=== PATIENT | female | born 1990 | race Two or more races ===

== ENCOUNTER 2021-09-20 19:30 | Observation (INO) | payer MEDICAID, OTHER ==
[2021-09-20] MEDS ORDERED: PREN-96 PO (19:54)
== END 2021-09-20 21:10 | disposition home or self-care (01) ==
LOC: LDRP 19:30
PROVIDERS: ADMIT Obstetrics & Gynecology; ATTEND Obstetrics & Gynecology
DX: O26.852 Spotting complicating pregnancy, second trimester (principal); Z3A.27 27 weeks gestation of pregnancy
CPT/HCPCS: 59025; 76815; 81002; G0378; G0379

== ENCOUNTER → 2021-11-12 | Outpatient (CLI) | payer MEDICAID ==
[~2021-11-12] MED LIST: PREN-96 PO
[2021-11-12 10:34] LABS: Basophils # (auto) 0.1 10 ^3/uL (0-0.2); Basophils % (auto) 0.7 % (0.0-2.0); Eosinophils # (auto) 0 10 ^3/uL (0-0.8); Eosinophils % (auto) 0.4 % (0.0-7.0); Hematocrit 41.4 % (36.0-46.0); Hemoglobin 14.1 g/dL (12.2-16.2); Lymphocytes # (auto) 2.1 10 ^3/uL (0.4-5.4); Mean Corpuscular Hemoglobin 31.5 pg (28.0-32.0); Mean Corpuscular Volume 92.7 fL (80.0-100.0); Monocytes # (auto) 0.5 10 ^3/uL (0-1.3); Monocytes % (auto) 5.4 % (0.0-12.0); Neutrophils # (auto) 6.1 10 ^3/uL (1.6-8.6); Neutrophils % (auto) 69.5 % (37.0-80.0); Red Blood Cells 4.47 10^6/uL (4.0-5.20); Red Cell Distribution Width 16.9 % (11.8-14.3); White Blood Cell 8.7 10^3/uL (4.4-10.8)
[2021-11-13 06:06] LABS: RPR Non Reactive (Non Reactive)
== END | disposition home or self-care (01) ==
LOC: LAB 10:12
PROVIDERS: ATTEND Obstetrics & Gynecology
DX: Z34.00 Encounter for supervision of normal first pregnancy, unspecified trimester (principal)
CPT/HCPCS: 36415; 84112; 85025; 86592

== ENCOUNTER 2021-12-07 09:53 | Observation (INO) | payer MEDICAID | END 2021-12-07 12:45 | disposition home or self-care (01) | LOC: LDRP 09:53 | PROVIDERS: ADMIT Obstetrics & Gynecology; ATTEND Obstetrics & Gynecology | DX: O32.1XX0 Maternal care for breech presentation, not applicable or unspecified (principal); Z20.822 Contact with and (suspected) exposure to COVID-19; Z3A.38 38 weeks gestation of pregnancy | CPT/HCPCS: 59025; 76818; 81002; G0378; G0379; U0003 ==

== ENCOUNTER 2021-12-09 04:10 | Inpatient (IN) | payer MEDICAID ==
[2021-12-09] VITALS (16 sets, daily range): BP systolic 97–114; BP diastolic 51–72
[~2021-12-09] VITALS: Ht 172.7 cm; Wt 71.7 kg
[2021-12-09] MEDS ORDERED: LACTATED RINGER'S 1,000 ML IV ONE (06:30)
[2021-12-09 07:15] LABS: Basophils # (auto) 0 10 ^3/uL (0-0.2); Basophils % (auto) 0.2 % (0.0-2.0); Eosinophils # (auto) 0.1 10 ^3/uL (0-0.8); Eosinophils % (auto) 0.7 % (0.0-7.0); Hematocrit 41.9 % (36.0-46.0); Hemoglobin 14.1 g/dL (12.2-16.2); Lymphocytes # (auto) 2.7 10 ^3/uL (0.4-5.4); Lymphocytes % (auto) 24.6 % (10.0-50.0); Mean Corpuscular Hemoglobin 32.3 pg (28.0-32.0); Mean Corpuscular Hgb Conc. 33.5 g/dL (32.0-36.0); Mean Corpuscular Volume 96.2 fL (80.0-100.0); Monocytes # (auto) 0.8 10 ^3/uL (0-1.3); Monocytes % (auto) 6.9 % (0.0-12.0); Neutrophils # (auto) 7.4 10 ^3/uL (1.6-8.6); Neutrophils % (auto) 67.6 % (37.0-80.0); Nucleated Red Blood Cells % 0.1 %; Red Blood Cells 4.36 10^6/uL (4.0-5.20); Red Cell Distribution Width 15.1 % (11.8-14.3); White Blood Cell 10.9 10^3/uL (4.4-10.8)
[2021-12-09] MEDS ORDERED: ceFAZolin 2 GM in D5W 5% 100 ML IV ONE (07:30)
[2021-12-09 07:32] LABS: Albumin 2.7 g/dL (3.4-5.0); Calcium 8.9 mg/dL (8.5-10.1); Potassium 3.8 mmol/L (3.5-5.1)
[2021-12-09 07:35] LABS: Bilirubin, Total 0.2 mg/dL (0.2-1.0)
[2021-12-09] MEDS: LACTATED RINGER'S 1,000 ML IV SCH ×2 (07:35→17:42)
[2021-12-09] MEDS ORDERED: TETRACAINE 1% INJ 2 ML VIAL IJ ONE ×2 (07:38→07:46)
[2021-12-09] MEDS ORDERED: SUCCINYLCHOLINE CHLORIDE 20 MG/ML 10ML VIAL IV ONE (07:41)
[2021-12-09] MEDS ORDERED: MORPHINE SULF PF 2 MG/2 ML SYRG ONE (07:49)
[2021-12-09] MEDS ORDERED: ceFAZolin 1GM/50ML 100 ML IV ONE (08:12)
[2021-12-09 08:47] LABS: INR 0.92 (0.9-1.15); Partial Thromboplastin Time 23.7 sec (23.6-33.0)
[2021-12-09] MEDS ORDERED: SODIUM CITR/CITRIC ACID ORAL SOLN 30 ML PO SCH (09:00)
[2021-12-09] MEDS ORDERED: ONDANSETRON HCL 4 MG/2 ML VIAL ONE (09:07)
[2021-12-09] MEDS ORDERED: oxyTOCIN 10 UNIT/ML 10ML VIAL ONE (09:45)
[2021-12-09] MEDS ORDERED: KETOROLAC TROMETH 30 MG/ML 1ML VIAL IV PRN (10:00)
[2021-12-09] MEDS ORDERED: NALOXONE HCL 0.4 MG/ML VIAL IV PRN (10:00)
[2021-12-09] MEDS ORDERED: DexAMETHasone SOD PHOS 10MG/1ML VIAL INJ IV PRN (10:00)
[2021-12-09] MEDS ORDERED: NALBUPHINE HCL 10 MG/1ml INJECTION SUBCUT ONE (10:00)
[2021-12-09] MEDS ORDERED: diphenhdrAMINE HCL 50 MG/1 ML VL IV PRN (10:00)
[2021-12-09] MEDS ORDERED: ONDANSETRON HCL 4 MG/2 ML VIAL IV PRN (10:00)
[2021-12-09] MEDS ORDERED: HYDROmorphone HCL 2 MG/ML VL IV PRN (10:00)
[2021-12-09] MEDS ORDERED: GUM (CHEWING) 1 GUM CHEW CHEW ONE (10:30)
[2021-12-09] MEDS ORDERED: SIMETHICONE 80 MG CHEWABLE TABLET PO PRN (10:30)
[2021-12-09] MEDS ORDERED: ePHEDrine SULFATE 50 MG/ML AMP IV PRN (10:30)
[2021-12-09 10:58] LABS: Urine Bacteria NONE SEEN /hpf (None Seen); Urine Blood 1+ /uL (Negative); Urine Mucus FEW (None Seen); Urine Specific Gravity 1.031 (1.001-1.035); Urine WBC 5 /hpf (0 - 5)
[2021-12-09 11:05] LABS: Alcohol, Urine < 3.0 mg/dL (0-10); Amphetamine Screen, Urine NEGATIVE (NEGATIVE); Barbiturate Scree,Urine NEGATIVE (NEGATIVE); Benzodiazephine Screen, Urine NEGATIVE (NEGATIVE); Cannabinoid Screen, Urine NEGATIVE (NEGATIVE); Cocaine Screen, Urine NEGATIVE (NEGATIVE); Opiate Scree,Urine NEGATIVE (NEGATIVE); Phencyclidine Screen, Urine NEGATIVE (NEGATIVE)
[2021-12-09] MEDS: DOCUSATE SOD 100 MG CAP PO SCH (21:36)
[2021-12-10 03:00] VITALS: BP 94/53
[2021-12-10 06:06] LABS: RPR Non Reactive (Non Reactive)
[2021-12-10 07:15] VITALS: BP 105/62
[2021-12-10 07:31] LABS: Basophils # (auto) 0 10 ^3/uL (0-0.2); Basophils % (auto) 0.2 % (0.0-2.0); Eosinophils # (auto) 0 10 ^3/uL (0-0.8); Eosinophils % (auto) 0.3 % (0.0-7.0); Hematocrit 36.1 % (36.0-46.0); Hemoglobin 12.4 g/dL (12.2-16.2); Lymphocytes # (auto) 1.2 10 ^3/uL (0.4-5.4); Lymphocytes % (auto) 11.8 % (10.0-50.0); Mean Corpuscular Hemoglobin 33.1 pg (28.0-32.0); Mean Corpuscular Hgb Conc. 34.3 g/dL (32.0-36.0); Mean Corpuscular Volume 96.3 fL (80.0-100.0); Monocytes # (auto) 0.5 10 ^3/uL (0-1.3); Neutrophils # (auto) 8.7 10 ^3/uL (1.6-8.6); Neutrophils % (auto) 82.7 % (37.0-80.0); Nucleated Red Blood Cells % 0.1 %; Red Blood Cells 3.75 10^6/uL (4.0-5.20); Red Cell Distribution Width 15.1 % (11.8-14.3); White Blood Cell 10.5 10^3/uL (4.4-10.8)
[2021-12-10] MEDS ORDERED: HYDROcodone-ACET 5/325MG TAB PO PRN (10:45)
[2021-12-10 11:30] VITALS: BP 109/70
[2021-12-10 15:22] VITALS: BP 115/62
[2021-12-10] MEDS: HYDROcodone-ACET 5/325MG TAB PO PRN (15:32)
[2021-12-10 19:30] VITALS: BP 123/64
[2021-12-10] MEDS: DOCUSATE SOD 100 MG CAP PO SCH (22:09)
[2021-12-10 23:00] VITALS: BP 115/71
[2021-12-11 03:00] VITALS: BP 102/63
[2021-12-11] MEDS ORDERED: BISACODYL 10 MG RECT SUPP PR ONE (03:00)
[2021-12-11 07:30] VITALS: BP 104/67
[2021-12-11 11:30] VITALS: BP 131/71
[2021-12-11 15:00] VITALS: BP 106/66
[2021-12-11 19:00] VITALS: BP 118/79
[2021-12-11] MEDS: DOCUSATE SOD 100 MG CAP PO SCH ×2 (21:33→22:00)
[2021-12-11] MEDS: HYDROcodone-ACET 5/325MG TAB PO PRN (21:33)
[2021-12-11 23:00] VITALS: BP 110/73
[2021-12-12 03:00] VITALS: BP 105/70
[2021-12-12 06:45] VITALS: BP 123/77
[2021-12-12 10:35] VITALS: BP 112/73
[2021-12-12] MEDS ORDERED: IBUP800T27 PO ×2 (12:38→13:05)
[2021-12-12] MEDS ORDERED: HYDR-4902 PO ×2 (12:38→13:05)
[2021-12-12] MEDS ORDERED: DOCU-94 PO ×2 (12:38→13:05)
== END 2021-12-12 13:21 | disposition home or self-care (01) | DRG 540 ==
LOC: UNDOADMOB 04:10 → LDRP 04:10 → INTOOBSV 05:16 → LDRP 05:16 → OBSVTOIN 05:16 → LDRP 09:46 → EDSTATUS 13:38 → UNDODISIN 12-12 13:21
PROVIDERS: ADMIT Obstetrics & Gynecology; ATTEND Obstetrics & Gynecology
PROC: 10D00Z1 Extraction of Products of Conception, Low, Open Approach (ICD-10-PCS; principal; 2021-12-09 08:32)
DX: O32.1XX0 Maternal care for breech presentation, not applicable or unspecified (principal); R71.0 Precipitous drop in hematocrit; O42.92 Full-term premature rupture of membranes, unspecified as to length of time between rupture and onset of labor; O77.0 Labor and delivery complicated by meconium in amniotic fluid; Z37.0 Single live birth; Z3A.39 39 weeks gestation of pregnancy
CPT/HCPCS: 36415; 59025; 76815; 80053; 80307; 81001; 81002; 84112; 85025; 85610; 85730; 86592; 86850; 86900; 86901; 94760; 94762; 96360; 96361; 96365; 96366; 96374; G0378; J0330; J0690; J1885; J2405; J2590; J7060